=== PATIENT | male | born 1940 | race Caucasian/White ===

== ENCOUNTER 2019-06-21 14:18 | Observation (INO) ==
--- NOTE | 2019-06-21 16:09 | RAD ---
ACUTE ABDOMEN SERIESHISTORY:ASCITIES, RENAL FAILURE, BEST VIEWS POSSIBLE, PT COMBATIVEStudy: Frontal view of the chest, flat and upright views of the abdomenComparison:NoneFindings:Cardiomediastinal silhouette is normal in size.There appears to be opacity throughout the left lung although patient is poorly positioned.Flat and upright views of the abdomen demonstrates a normal bowel gas pattern.No free air..No abnormal calcifications or abnormal soft tissue shadows. No acute bony abnormalities.IMPRESSION:1. Possible large left lung opacity however patient is poorly position. Recommend repeat imaging with correct PA and lateral views.2. No evidence for acute abdominal pathology.Electronically signed by: PIOTR WILSON (June 21, 2019 16:08:36)
[2019-06-21 17:30] LABS: ALANINE AMINOTRANSFERASE < 6 Units/L (12-78); ALBUMIN 1.8 g/dL (3.4-5.0); ALKALINE PHOSPHATASE 108 Units/L (46-116); ASPARTATE AMINO TRANSFERASE 20 Units/L (15-37); BLOOD UREA NITROGEN 105 mg/dL (7-18); CALCIUM 7.8 mg/dL (8.5-10.1); CARBON DIOXIDE 17.1 mmol/L (21-32); CHLORIDE 97 mmol/L (98-107); COR CA(FOR HYPOALB) 9.6 mg/dL (8.5-10.1); TOTAL PROTEIN 5.6 g/dL (6.4-8.2); eGFR NON BLACK RACES 9 (>60)
[2019-06-21 17:38] LABS: SODIUM 128 mmol/L (136-145)
[2019-06-21 19:14] VITALS: BMI 20.3
[2019-06-21] MEDS: PULMICORT NEB TX 0.5 MG NEB SCH (21:05)
[2019-06-21] MEDS: DUONEB 0.5 MG/3 MG (3 mL) NEB PRN (21:05)
[2019-06-21 21:11] LABS: BASOPHILS % (AUTO) 0.7 % (0.2-1.0); EOSINOPHILS % (AUTO) 0.9 % (0.9-2.9); HEMATOCRIT 30.7 % (42.0-54.0); HEMOGLOBIN 9.8 g/dL (13.5-18.0); LYMPHOCYTES % (AUTO) 7.5 % (21.0-51.0); MEAN CORPUSCULAR HEMOGLOBIN 29.4 pg (27.0-34.0); MEAN CORPUSCULAR HGB CONC 31.8 g/dL (33.0-35.0); MEAN CORPUSCULAR VOLUME 92.3 fL (80.0-100.0); MEAN PLATELET VOLUME 9.7 fL (7.4-11.0); MONOCYTES % (AUTO) 4.4 % (0.0-13.0); NEUTROPHILS % (AUTO) 86.5 % (42.0-75.0); PLATELET COUNT 74 X10^3/uL (150.0-450.0); RED BLOOD COUNT 3.32 X10^6/uL (4.7-6.0); RED CELL DISTRIBUTION WIDTH 19.9 % (11.6-16.5)
[2019-06-21 21:12] LABS: WHITE BLOOD COUNT 3.2 X10^3/uL (3.6-10.0)
[2019-06-21 21:15] LABS: BAND NEUTROPHILS % 2 % (0-10)
[2019-06-21 21:16] LABS: ANISOCYTOSIS 1+; CRENATED RBC 1+; HYPOCHROMASIA SLIGHT; PLATELET MORPHOLOGY COMMENT NORMAL (NORMAL)
[2019-06-22] MEDS: NS 1000 ML 1,000 ML IV SCH ×2 (06:00→07:55)
[2019-06-22 06:30] LABS: BASOPHILS % (AUTO) 0.4 % (0.2-1.0); EOSINOPHILS % (AUTO) 0.4 % (0.9-2.9); HEMATOCRIT 29.8 % (42.0-54.0); HEMOGLOBIN 9.9 g/dL (13.5-18.0); LYMPHOCYTES # (AUTO) 0.2 X10^3/uL (1.3-2.9); LYMPHOCYTES % (AUTO) 8.4 % (21.0-51.0); MEAN CORPUSCULAR HEMOGLOBIN 30.3 pg (27.0-34.0); MEAN CORPUSCULAR VOLUME 91.8 fL (80.0-100.0); MEAN PLATELET VOLUME 10.6 fL (7.4-11.0); MONOCYTES # (AUTO) 0.1 x10^3/uL (0.3-0.8); MONOCYTES % (AUTO) 4.9 % (0.0-13.0); NEUTROPHILS # (AUTO) 2.4 x10^3/uL (2.2-4.8); NEUTROPHILS % (AUTO) 85.9 % (42.0-75.0); PLATELET COUNT 73 X10^3/uL (150.0-450.0); RED BLOOD COUNT 3.25 X10^6/uL (4.7-6.0); RED CELL DISTRIBUTION WIDTH 20.2 % (11.6-16.5); WHITE BLOOD COUNT 2.8 X10^3/uL (3.6-10.0)
[2019-06-22 06:50] LABS: ALANINE AMINOTRANSFERASE 6 Units/L (12-78); ALBUMIN 1.7 g/dL (3.4-5.0); ALKALINE PHOSPHATASE 106 Units/L (46-116); ANISOCYTOSIS 1+; ASPARTATE AMINO TRANSFERASE 19 Units/L (15-37); BLOOD UREA NITROGEN 105 mg/dL (7-18); CARBON DIOXIDE 17.7 mmol/L (21-32); CHLORIDE 99 mmol/L (98-107); COR CA(FOR HYPOALB) 9.8 mg/dL (8.5-10.1); CREATININE 6.58 mg/dL (0.70-1.30); PLATELET MORPHOLOGY COMMENT NORMAL (NORMAL); SODIUM 132 mmol/L (136-145); TOTAL PROTEIN 5.4 g/dL (6.4-8.2); eGFR NON BLACK RACES 9 (>60)
--- NOTE | 2019-06-22 09:34 | PCM.PROG ---
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 Patient was recently discharged with home hospice and seen yesterday as a f/u with Dr. Weinberg. He was noted to be dehydrated with increased abdominal distension so directly admitted to the hospital for further care. After talking to CM, patient's sister Grace who is the POA had accepted patient's comfort care measures but due to his decline, she agreed to having him admitted yesterday. On exam, patient is drowsy, not really answering questions. He denies having pain. He was not able to tell me how he was doing at home. Labs: worsening BUN/Cr, hgb: 9.9 Plt: 73 Patient was admitted for hydration, paracentesis and possible shelter placement as he is not able to take care of himself at home. CM spoke to patient's sister again this morning and now family is in agreement for home hospice and would like to take the patient home and keep him comfortable. Patient had expressed in prev admissions that he would like to stay home and be comfortable. Will continue supportive care. Plan is home with home hospice. Past Medical Family Social History Past Med/Fam/Surg Hx: No changes since H&P Allergies: Allergies No Known Drug Allergies Allergy (Verified 05/10/19 11:53) Review of Systems ROS: No change since H&P Vital Signs and I&O's Vital Signs: Temperature 97.0 F Pulse Rate [Right] 103 Pulse Rate 98 Respiratory Rate 16 Blood Pressure [Right Calf] 130/58 Blood Pressure [Left Calf] 93/53 O2 Sat by Pulse Oximetry 96 Intake and Output: Intake & Output 06/19/19 06/20/19 06/21/19 06/22/19 23:59 23:59 23:59 23:59 Intake Total 0 / 0 0 / 0 Balance 0 / 0 0 / 0 Physical Exam Oriented: Unable to test Respiratory: Diminished Cardiovascular: Tachycardia Auscultation: Bowel Sounds: Decreased Palpation: Liver Enlarged Tenderness: Other (distended, no leakage noted ) Musculoskeletal: Deformity Mood Description: Calm Affect: Quiet Speech Pattern: Delayed Laboratory and Diagnostics Result Diagrams: 06/22/19 05:35 06/22/19 05:35 Labs: Laboratory WBC 2.8 X10^3/uL (3.6-10.0) L 06/22/19 05:35 RBC 3.25 X10^6/uL (4.7-6.0) L 06/22/19 05:35 Hgb 9.9 g/dL (13.5-18.0) L 06/22/19 05:35 Hct 29.8 % (42.0-54.0) L 06/22/19 05:35 MCV 91.8 fL (80.0-100.0) 06/22/19 05:35 MCH 30.3 pg (27.0-34.0) 06/22/19 05:35 MCHC 33.0 g/dL (33.0-35.0) 06/22/19 05:35 RDW 20.2 % (11.6-16.5) H 06/22/19 05:35 Plt Count 73 X10^3/uL (150.0-450.0) L 06/22/19 05:35 Plt Count Comment Adequate (ADEQUATE) 06/22/19 05:35 MPV 10.6 fL (7.4-11.0) 06/22/19 05:35 Neut % (Auto) 85.9 % (42.0-75.0) H 06/22/19 05:35 Lymph % (Auto) 8.4 % (21.0-51.0) L 06/22/19 05:35 Ritchie % (Auto) 4.9 % (0.0-13.0) 06/22/19 05:35 Eos % (Auto) 0.4 % (0.9-2.9) L 06/22/19 05:35 Baso % (Auto) 0.4 % (0.2-1.0) 06/22/19 05:35 Neut # (Auto) 2.4 x10^3/uL (2.2-4.8) 06/22/19 05:35 Lymph # (Auto) 0.2 X10^3/uL (1.3-2.9) L 06/22/19 05:35 Ritchie # (Auto) 0.1 x10^3/uL (0.3-0.8) L 06/22/19 05:35 Eos # (Auto) 0.0 x10^3/uL (0.0-0.2) 06/22/19 05:35 Baso # (Auto) 0.0 X10^3/uL (0.0-0.1) 06/22/19 05:35 Absolute Nucleated RBC 0.2 /100WBC 06/22/19 05:35 Total Counted 50 06/21/19 16:35 Neutrophils % (Manual) 84 % (39-76) H 06/21/19 16:35 Band Neutrophils % 2 % (0-10) 06/21/19 16:35 Lymphocytes % (Manual) 10 % (13-43) L 06/21/19 16:35 Monocytes % (Manual) 4 % (4-9) 06/21/19 16:35 Plt Morphology Comment Normal (NORMAL) 06/22/19 05:35 RBC Morphology Abnormal (NORMAL) 06/22/19 05:35 Hypochromasia Slight A 06/21/19 16:35 Anisocytosis 1+ A 06/22/19 05:35 Crenated Cell 1+ A 06/21/19 16:35 Sodium 132 mmol/L (136-145) L 06/22/19 05:35 Corrected Sodium TNP 06/22/19 05:35 Potassium 5.0 mmol/L (3.5-5.1) 06/22/19 05:35 Chloride 99 mmol/L (98-107) 06/22/19 05:35 Carbon Dioxide 17.7 mmol/L (21-32) L 06/22/19 05:35 BUN 105 mg/dL (7-18) H 06/22/19 05:35 Creatinine 6.58 mg/dL (0.70-1.30) H 06/22/19 05:35 Est GFR (MDRD) Af Amer 11 (>60) L 06/22/19 05:35 Est GFR (MDRD) Non-Af 9 (>60) L 06/22/19 05:35 Glucose 74 mg/dL (65-99) 06/22/19 05:35 Calcium 8.0 mg/dL (8.5-10.1) L 06/22/19 05:35 Corrected Calcium 9.8 mg/dL (8.5-10.1) 06/22/19 05:35 Total Bilirubin 0.40 mg/dL (0.2-1.0) 06/22/19 05:35 AST 19 Units/L (15-37) 06/22/19 05:35 ALT 6 Units/L (12-78) L 06/22/19 05:35 Alkaline Phosphatase 106 Units/L (46-116) 06/22/19 05:35 Total Protein 5.4 g/dL (6.4-8.2) L 06/22/19 05:35 Albumin 1.7 g/dL (3.4-5.0) L 06/22/19 05:35 Globulin 3.7 g/dL (2.5-4.5) 06/22/19 05:35 Albumin/Globulin Ratio 0.5 Ratio (1.1-2.1) L 06/22/19 05:35 Plan (1) Hospice care: Status: Acute (2) Failure to thrive: Status: Acute Qualifiers: Failure to thrive age range: in adult Qualified Code(s): R62.7 - Adult failure to thrive (3) Metabolic acidosis: Status: Acute (4) Hepatorenal failure: Status: Acute (5) Anemia due to chronic kidney disease: Status: Acute Qualifiers: Chronic kidney disease stage: stage 5, not on chronic dialysis Qualified Code(s): N18.5 - Chronic kidney disease, stage 5; D63.1 - Anemia in chronic kidney disease (6) Thrombocytopenia: Status: Acute (7) Cirrhosis of liver: Status: Chronic Qualifiers: Ascites presence: with ascites Hepatic cirrhosis type: alcoholic cirrhosis Qualified Code(s): K70.31 - Alcoholic cirrhosis of liver with ascites
[2019-06-22] MEDS: DUONEB 0.5 MG/3 MG (3 mL) NEB PRN (10:00)
[2019-06-22] MEDS: PULMICORT NEB TX 0.5 MG NEB SCH (10:00)
--- NOTE | 2019-06-22 12:44 | PCM.DCPLAN ---
Discharge Plan - Discharge Plan Disposition: 50 DISCHARGED TO HOSPICE -HOME Condition: Stable Health Concerns: Post Hospitalization: new medications and changes needed to prevent readmission or further decline. Pt educated and given instructions on all concerns. Care Plan Goals: Problem: Pain/Alteration in Comfort Goal: Improve/ Resolve Pain; Achieve Pain Tolerance Instructions: Take pain medications as prescribed. Contact your primary care provider if your pain is unrelieved or worsens. Follow up with primary care provider as directed. Plan of Treatment: Continue with present treatment and follow up plan. Pt is to keep follow up appointment as instructed and take medications as ordered. Prescriptions: Continued budesonide-formoterol [Symbicort] 160-4.5 mcg/actuation Hfa Aerosol Inhaler 2 puff INHALATION BID divalproex [Depakote ER] 500 mg Tablet Extended Release 24 Hr 500 mg PO HS fluoxetine [Prozac] 10 mg Capsule 10 mg PO DAILY gabapentin 100 mg capsule 100 mg PO BID 30 Days Qty: 60 RF: 0 ipratropium bromide 17 mcg/actuation Hfa Aerosol Inhaler 2 puff INHALATION Q4H PRN ondansetron HCl [Zofran] 4 mg Tablet 4 mg PO Q6H PRN pantoprazole [Protonix] 40 mg Tablet,Delayed Release (Dr/Ec) 40 mg PO QAM rifaximin 550 mg Tablet 550 mg PO BID sodium bicarbonate 650 mg Tablet 650 mg PO BID 30 Days Qty: 60 RF: 0 Spiriva with HandiHaler 18 mcg Capsule, W/Inhalation Device 1 cap INHALATION DAILY thiamine HCl (vitamin B1) 100 mg Tablet 100 mg PO DAILY - Follow ups/Referrals Follow ups/Referrals: [facility] [Other] Zina Ward [Primary Care Provider] - - Instructions Instructions: and Dying, Cirrhosis, Palliative Care, Hospice, Failure to Thrive, Adult, [id number] Forms: Precautions for COVID19, Patient Portal, Social Distancing Print Language: IVORIAN - Patient Education Addl Reference Links: Hospice [email or web address] [email or web address]=[email or web address] [email or web address]&[email or web address]&[email or web address]=[email or web address]& [email or web address].dn=[email or web address]&[email or web address]
[2019-06-22 14:46] VITALS: BP 84/51
[2019-06-22 14:52] LABS: BILIRUBIN,URINE 2+ (NEGATIVE); BLOOD/HEMOGLOBIN,URINE 5+ (NEGATIVE); GLUCOSE, URINE NEGATIVE (NEGATIVE); KETONES,URINE NEGATIVE (NEGATIVE); LEUKOCYTE ESTERASE ,URINE 3+ (NEGATIVE); NITRITES,URINE NEGATIVE (NEGATIVE); PROTEIN,URINE 3+ (NEGATIVE); UROBILINOGEN,URINE NORMAL (NORMAL)
[2019-06-22 15:06] LABS: APPEARANCE,URINE CLOUDY (CLEAR); BACTERIA,URINE 2+ /HPF (NEGATIVE); COLOR,URINE AMBER (YELLOW); RBC,URINE TNTC /HPF (0-3); SQUAMOUS EPITHELIAL CELL,UR FEW /HPF (NEGATIVE)
== END 2019-06-22 15:20 | disposition hospice, home (50) ==
LOC: MED/SURG
PROVIDERS: ADMIT Surgery; ATTEND Surgery
CPT/HCPCS: 36415; 74022; 80053; 81001; 85025; 87040; 94640; 94760; A4222; G0378; J7620; J7626